=== PATIENT | female | born 1965 | race Caucasian/White ===

== ENCOUNTER 2020-09-17 15:18 | Emergency (ER) | payer MEDICAID, SELFPAY ==
[2020-09-17 15:19] VITALS: BP 164/94; PULSE 82; RESP 16; TEMP 36.6; O2SAT 98; BMI 27.3
[2020-09-17 15:24] VITALS: BP 164/94; PULSE 88; RESP 16; TEMP 36.6; O2SAT 98
--- NOTE | 2020-09-17 16:24 | EX.ED.DYSGE1 ---
HPI History of Present Illness Chief Complaint: General Illness Narrative Narrative: Patient presents with cough congestion subjective fevers and myalgias she was exposed to Covid by her . She has no shortness of breath or cough. She has no loss of taste or smell. [facility] Medical History (Updated 09/17/20 @ 16:[address] Robert Crocker MD) HTN (hypertension) Kidney disease Allergy/AdvReac Type Severity Reaction Status Date / Time No Known Allergies Allergy Verified 09/17/20 15:25 Social History Smoking Status: Former smoker ROS ROS ED ROS Narrative Past medical history: Reviewed Medications: Reviewed Social history: Noncontributory Review of systems: All systems negative except as indicated General: Subjective fevers, generalized weakness. Eyes: No visual changes ENT: Some upper airway congestion, normal voice Neck: No neck pain Cardiovascular: No chest pain Respiratory: No shortness of breath or cough Gastrointestinal: No abdominal pain, nausea vomiting or diarrhea Genitourinary: No dysuria Musculoskeletal: Myalgias. Skin: No rash Neurological: No memory loss, confusion or any focal weakness Psych: No recent behavioral changes Hematologic: No easy bleeding or easy bruising EXAM Physical Exam Narrative Exam Narrative: Physical exam General: Well nourished, Well developed, No Acute Distress she does not appear uncomfortable she has normal vitals. Head: Normocephalic, Atraumatic Eyes: Conjunctiva not pale ENT: Moist mucous membranes, some upper airway congestion Neck: Supple, Nontender, No lymphadenopathy Cardiovascular: Regular rate, Regular rhythm Respiratory: No distress, CTA bilaterally Abdomen: Soft, Nontender, Nondistended Back: Nontender, Normal Inspection. Negative for: CVA tenderness Extremities: Nontender, No edema Skin: Normal color, No rash Neurological: Alert, Normal Strength, Normal Sensation Psychological: Normal affect Const Vital Signs: 09/17/20 15:19 09/17/20 15:24 09/17/20 16:13 Temperature 97.9 F 97.9 F Temperature Source Temporal Temporal Pulse Rate 82 88 Respiratory Rate 16 16 Respiratory Effort Normal Non-Labored Blood Pressure 164/94 H 164/94 H Blood Pressure Mean 117 117 Pulse Ox 98 98 Oxygen Delivery Method Room Air Room Air MDM MDM MDM Narrative Medical decision making narrative: Patient appears well, she has normal saturation she has normal vitals and she appears well. I will test her for Covid otherwise I will discharge her in stable condition. She is told to quarantine. Discharge Plan Triage Chief Complaint: General Illness ED Provider: Robert Crocker Dx/Rx/DC Orders Clinical Impression: Acute upper respiratory infection Instructions: ED URI, Viral, No Abx (Adult) Primary Care Provider: Benson Wing Referrals: Benson Wing MD [Primary Care Provider] - 3-5 Days Disposition Disposition: Home, Self Care
== END 2020-09-17 16:38 | disposition home or self-care (01) ==
PROVIDERS: Emergency Provider Emergency Medicine; PCP Family Medicine
DX: U07.1 COVID-19 (principal); I10 Essential (primary) hypertension; Z87.891 Personal history of nicotine dependence
CPT/HCPCS: 87426; 99282

== ENCOUNTER 2021-10-05 11:51 | Emergency (ER) | payer MEDICAID, SELFPAY ==
[2021-10-05 11:52] VITALS: BP 184/96; PULSE 81; RESP 14; TEMP 36.6; O2SAT 100; BMI 26.9
--- NOTE | 2021-10-05 12:02 | EDS_ITS ---
HPI History of Present Illness Chief Complaint: Upper Extremity Injury Detail of Chief Complaint: Right shoulder pain Informant: patient Onset/Context/Timing Onset: Today Context: Sudden Onset Quality of Pain: Aching and Throbbing Current Severity: Moderate Maximum Severity: Severe Worsened by: Movement Narrative Narrative: Patient presents secondary to right shoulder pain. She was at football pictures with her grandson today. She states she threw his bag into the back of her SUV. When she reached up to hit the button to close the tailgate she felt something pop in her right shoulder and has had extreme pain since that time. She is right-hand dominant. She denies any previous problems with her shoulder. [facility] Medical History HTN (hypertension) Kidney disease Home Medications hydrocodone-acetaminophen 5-325mg 5mg-325mg 1 tab PO Q6H PRN pain 3 days #10 tabs 10/05/21 [Rx Last Taken Unknown] Allergy/AdvReac Type Severity Reaction Status Date / Time No Known Allergies Allergy Verified 10/05/21 11:52 Social History Smoking Status: Former smoker ROS ROS ED Constitutional Constitutional ED: Denies chills or fever(s) Eyes Eyes: Denies change in vision or discharge from eye(s) ENT ENT ED: Denies discharge from eye(s), rhinorrhea or sore throat Cardiovascular Cardiovascular: Denies chest pain or palpitations Respiratory/Chest Respiratory/Chest: Denies cough or dyspnea Gastrointestinal Gastrointestinal: Denies abdominal pain, diarrhea, nausea or vomiting Genitourinary Genitourinary ED: Denies dysuria Musculoskeletal Musculoskeletal: Reports extremity pain Integumentary Denies Abrasions or rash Neurologic Neurologic: Reports weakness; Denies headache(s) or paresthesias Psychiatric Psychiatric: Denies anxiety or depression Allergic/Immunologic Allergic/Immunologic ED: Denies lip swelling or urticaria EXAM Physical Exam Const Vital Signs: 10/05/21 11:52 Temperature 97.8 F Temperature Source Temporal Pulse Rate 81 Respiratory Rate 14 Blood Pressure 184/96 H Blood Pressure Mean 125 Pulse Ox 100 Oxygen Delivery Method Room Air Positive well nourished and well developed General Appearance ED: well developed HEENT Reports normocephalic and head/scalp atraumatic Eyes PERRL and EOMs intact bilaterally Neck supple Chest Wall inspection of chest normal and palpation of chest normal Resp normal respiratory effort and clear to auscultation bilaterally Cardio regular rate and regular rhythm GI normal to inspection, nondistended, normoactive bowel sounds Palpation: soft Extremity Extremity Narrative: Tenderness palpation around the right humeral head and right scapula. No obvious deformity. Strong distal pulses and strong hand grasp with the right hand. Neuro oriented x3 and no sensory deficits noted Sensorium / Orientation: alert Psych mental status grossly normal Skin no rashes or lesions noted MDM MDM MDM Narrative Medical decision making narrative: Patient was given IM morphine and Zofran for pain control. Right shoulder x-ray obtained along with portable chest x-ray. Radiography Diagnostic Testing: Radiology Impression Chest X-Ray 10/05/21 12:10 IMPRESSION: Degenerative changes, as described above. No demonstrated acute cardiopulmonary process. Electronically Signed: Anoop Adams MD at 12:51 EDT , Shoulder X-Ray 10/05/21 12:10 IMPRESSION: Normal x-ray examination of the shoulder. Electronically Signed: Anoop Adams MD at 12:51 EDT , Treatment and Re-Evaluation Narrative: Repeat evaluation patient sitting upright in bed with her arm propped on her lap. Chest x-ray per my interpretation shows no acute abnormalities. Right shoulder x-ray per my interpretation shows no obvious fracture or dislocation. Radiology interpretation of both images is reviewed. Test results discussed with patient. With patient's degree of pain and decreased range of motion I am concerned that she may have torn her rotator cuff. She will be given a sling and analgesics for home. She was referred to Dr. Alfaro, on-call for orthopedics. Discharge Plan Triage Chief Complaint: Upper Extremity Injury ED Provider: Sharon Alcaraz Dx/Rx/DC Orders Clinical Impression: Sprain of right shoulder Instructions: ED Shoulder Sprain Prescriptions: New hydrocodone-acetaminophen 5-325 mg tablet 1 tab PO Q6H PRN (Reason: pain) 3 Days Qty: 10 0RF Primary Care Provider: Benson Wing Referrals: Benson Wing MD [Primary Care Provider] - Carlos Alfaro MD [Med Staff - Active Staff] - 5-7 Days Disposition Disposition: Home, Self Care
[2021-10-05] MEDS: Ondansetron 4 MG/2 ML Vial IM (12:05)
[2021-10-05] MEDS: morphine 10 MG/ML Syringe IM (12:05)
--- NOTE | 2021-10-05 12:10 | RAD_ITS ---
STUDY: X-RAY CHEST REASON FOR EXAM: Female, 56 years old. pain TECHNIQUE: Single AP portable view of the chest. COMPARISON: None. FINDINGS: The lungs are clear and expanded. There is no demonstrated pleural abnormality. Normal size heart. Normal mediastinum and fermin. Normal visualized pulmonary arteries. There is atherosclerotic tortuosity of the aortic arch and descending thoracic aorta. There are diffuse degenerative changes of the visualized thoracic spine. Normal visualized ribs, clavicles, and shoulders. There is no demonstrated abnormality of the visualized soft tissue structures of the upper abdomen. RAD/Chest 1 View (Portable) IMPRESSION: Degenerative changes, as described above. No demonstrated acute cardiopulmonary process. Electronically Signed: Anoop Adams MD at 12:51 EDT ,
--- NOTE | 2021-10-05 12:10 | RAD_ITS ---
STUDY: X-RAY - RIGHT SHOULDER REASON FOR EXAM: Female, 56 years old. Mild soft tissue swelling is present on the medial side of the distal one third tibial shaft. No subcutaneous gas is present. TECHNIQUE: 2 view(s) of the shoulder. COMPARISON: None. FINDINGS: Normal glenohumeral articulation. Normal acromioclavicular joint. Normal acromion. Normal humeral head and visualized proximal humerus. The soft tissue structures are unremarkable. There is no demonstrated fracture. Normal visualized pulmonary apex. RAD/Shoulder min 2 Views IMPRESSION: Normal x-ray examination of the shoulder. Electronically Signed: Anoop Adams MD at 12:51 EDT ,
== END 2021-10-05 13:33 | disposition home or self-care (01) ==
PROVIDERS: Emergency Provider Emergency Medicine; PCP Family Medicine; Visit Provider Emergency Medicine
DX: S43.401A Unspecified sprain of right shoulder joint, initial encounter (principal); X58.XXXA Exposure to other specified factors, initial encounter; I10 Essential (primary) hypertension; Z87.891 Personal history of nicotine dependence
CPT/HCPCS: 71045; 73030; 96372; 99283; J2405

== ENCOUNTER → 2021-10-28 | Outpatient (CLI) | payer MEDICAID, SELFPAY ==
--- NOTE | 2021-10-28 11:10 | MRI_ITS ---
STUDY: MRI RIGHT SHOULDER REASON FOR EXAM: Right shoulder pain after a pop 3-4 weeks ago, limited range of motion. TECHNIQUE: Standardized fat and water weighted pulse sequences were obtained in all 3 orthogonal planes. COMPARISON: Radiographs 10/05/2021. FINDINGS: There is supraspinatus/infraspinatus tendinosis (T2 coronal images 10-14) without discrete tendon tear. Normal subscapularis tendon. Normal teres minor tendon. Normal supraspinatus muscle. Normal infraspinatus muscle. Normal subscapularis muscle. Normal teres minor muscle. Normal glenohumeral articulation. Normal humeral head and visualized proximal humerus. There is a possible SLAP lesion (proton-density coronal images 12, 13). Normal intracapsular long biceps tendon. Normal capsulo- ligamentous complex. Normal acromioclavicular articulation. There is an os acromiale (T2 axial images 3, 4). There is a Type II morphology (curved), with a neutral orientation. There is a trace of subacromial-subdeltoid bursal fluid. Normal visualized coracohumeral and coracoacromial ligaments. Normal deltoid muscle. Normal trapezius muscle. MRI/Upper Ext Joint Only(Routine) IMPRESSION: Supraspinatus/infraspinatus tendinosis without demonstrated rotator cuff tear. Possible SLAP lesion. Os acromiale. Electronically Signed: Tavo Brumfield MD at 12:39 EDT ,
== END | disposition home or self-care (01) ==
LOC: MRI 11:10
PROVIDERS: PCP Family Medicine; Visit Provider Orthopaedic Surgery Sports Medicine
DX: S43.401A Unspecified sprain of right shoulder joint, initial encounter (principal); S46.011A Strain of muscle(s) and tendon(s) of the rotator cuff of right shoulder, initial encounter
CPT/HCPCS: 73221

== ENCOUNTER 2021-12-17 11:39 | Emergency (ER) | payer MEDICAID, SELFPAY ==
[2021-12-17 11:41] VITALS: BP 180/89; PULSE 96; RESP 16; TEMP 36.2; O2SAT 100; BMI 28.3
--- NOTE | 2021-12-17 12:06 | EDS_ITS ---
HPI History of Present Illness Chief Complaint: Lower Extremity Injury Detail of Chief Complaint: Right foot injury Informant: patient Onset/Context/Timing Onset: Today Current Severity: Moderate Maximum Severity: Moderate Narrative Narrative: Patient presents secondary to right foot injury. She states when she got this morning she tripped over some towels or next to her bed. She bent her right great toe back and has had pain and swelling to that area since. She denies any other injury. [facility] Medical History Arthritis of left acromioclavicular joint Arthritis of right acromioclavicular joint HTN (hypertension) Internal impingement of left shoulder Internal impingement of right shoulder Kidney disease SLAP lesion of left shoulder SLAP lesion of right shoulder Strain of muscle(s) and tendon(s) of the rotator cuff of left shoulder, subsequent encounter Strain of muscle(s) and tendon(s) of the rotator cuff of right shoulder, initial encounter Strain of muscle(s) and tendon(s) of the rotator cuff of right shoulder, subsequent encounter Home Medications meloxicam 7.5 mg tablet 7.5 mg PO BID PRN right shoulder pain 2 weeks #30 tabs 11/18/21 [Rx Last Taken Unknown] tramadol 50 mg tablet 50 mg PO Q6H PRN Pain 12/17/21 [History Last Taken Unknown] Allergy/AdvReac Type Severity Reaction Status Date / Time No Known Allergies Allergy Verified 12/17/21 11:42 Surgical History H/O: hysterectomy Social History household members: spouse and children Smoking Status: Former smoker ROS ROS ED Constitutional Constitutional ED: Denies chills or fever(s) Eyes Eyes: Denies change in vision or discharge from eye(s) ENT ENT ED: Denies discharge from eye(s), rhinorrhea or sore throat Cardiovascular Cardiovascular: Denies chest pain or palpitations Respiratory/Chest Respiratory/Chest: Denies cough or dyspnea Gastrointestinal Gastrointestinal: Denies abdominal pain, diarrhea, nausea or vomiting Musculoskeletal Musculoskeletal: Reports extremity pain; Denies back pain Integumentary Denies Abrasions or rash Neurologic Neurologic: Denies headache(s) or weakness Psychiatric Psychiatric: Denies anxiety or depression Allergic/Immunologic Allergic/Immunologic ED: Denies lip swelling or urticaria EXAM Physical Exam Const Vital Signs: 12/17/21 11:41 Temperature 97.2 F L Temperature Source Temporal Pulse Rate 96 Respiratory Rate 16 Blood Pressure 180/89 H Blood Pressure Mean 119 Pulse Ox 100 Oxygen Delivery Method Room Air Positive well nourished and well developed General Appearance ED: well developed HEENT Reports normocephalic and head/scalp atraumatic Eyes PERRL and EOMs intact bilaterally Neck supple Chest Wall inspection of chest normal and palpation of chest normal Resp normal respiratory effort and clear to auscultation bilaterally Cardio regular rate and regular rhythm GI normal to inspection, nondistended, normoactive bowel sounds Palpation: soft Extremity Extremity Narrative: Tenderness of patient mild edema/erythema to the right first MTP joint. Good cap refill distally. No lacerations or abrasions. Neuro oriented x3 and no sensory deficits noted Sensorium / Orientation: alert Motor Exam: strength 5/5 throughout Psych mental status grossly normal Skin no rashes or lesions noted MDM MDM MDM Narrative Medical decision making narrative: Right foot x-ray obtained. Radiography Diagnostic Testing: Clinical Impression(s) from Imaging Studies Foot X-Ray 12/17/21 12:20 IMPRESSION: Hallux valgus deformity. Electronically Signed: Shaji Bautista MD at 12:33 EDT Reading Location ID and State: [facility] / [place] , Service support , Treatment and Re-Evaluation Narrative: Right foot x-ray per my interpretation reveals no acute fracture. Radiology interpretation is reviewed and agrees. Alli wrap is applied to the right foot. Return instructions provided. Discharge Plan Triage Chief Complaint: Lower Extremity Injury ED Provider: Sharon Alcaraz Dx/Rx/DC Orders Clinical Impression: Right foot sprain Instructions: ED Foot Sprain Prescriptions: No Action meloxicam 7.5 mg tablet 7.5 mg PO BID MDD 2 PRN (Reason: right shoulder pain) 14 Days Qty: 30 2RF tramadol 50 mg Tablet 50 mg PO Q6H PRN (Reason: Pain) Primary Care Provider: Benson Wing Referrals: Benson Wing MD [Primary Care Provider] - 10-14 Days if not better Disposition Disposition: Home, Self Care
--- NOTE | 2021-12-17 12:20 | RAD_ITS ---
STUDY: X-RAY - RIGHT FOOT CLINICAL: Female, 56 years old. Pain following injury. TECHNIQUE: 3 view(s) of the foot. COMPARISON: None. FINDINGS: Normal talus, calcaneus, and tarsal bones. Normal visualized subtalar, talonavicular, calcaneocuboid, tarsal and tarsometatarsal articulations. Normal metatarsi. There is degenerative arthrosis of the metatarsophalangeal joint of the hallux with a hallux valgus deformity. Normal tibial and fibular sesamoid bones. Normal interphalangeal joint of the great toe. Normal phalanges of the great toe. Normal second through fifth metatarsophalangeal joints. Normal interphalangeal joints and phalanges of the lesser toes. The soft tissue structures are unremarkable. RAD/Foot min 3 Views IMPRESSION: Hallux valgus deformity. Electronically Signed: Shaji Bautista MD at 12:33 EDT ,
== END 2021-12-17 13:17 | disposition home or self-care (01) ==
PROVIDERS: Emergency Provider Emergency Medicine; PCP Family Medicine; Visit Provider Emergency Medicine
DX: S93.601A Unspecified sprain of right foot, initial encounter (principal); W22.8XXA Striking against or struck by other objects, initial encounter; I10 Essential (primary) hypertension; Z79.1 Long term (current) use of non-steroidal anti-inflammatories (NSAID); Z87.891 Personal history of nicotine dependence
CPT/HCPCS: 73630; 99282

== ENCOUNTER → 2022-02-25 | Outpatient (CLI) | payer MEDICAID, SELFPAY ==
--- NOTE | 2022-02-25 16:59 | MRI_ITS ---
EXAM: MR RIGHT LOWER EXTREMITY WITHOUT INTRAVENOUS CONTRAST, KNEE CLINICAL INDICATION: OSTEOARTHRITIS, SWELLING/PAIN RIGHT KNEE TECHNIQUE: Multiplanar and multisequence MR images of the right knee without intravenous contrast. This report was created using [employer] report Bluet[employer] technology. COMPARISON: None. FINDINGS: BONES/JOINTS: Unremarkable. No fracture. No abnormal bone marrow signal. No synovial hypertrophy. No intra-articular body. EXTENSOR MECHANISM: Unremarkable. MEDIAL MENISCUS: Unremarkable. LATERAL MENISCUS: Unremarkable. MEDIAL CAPSULE/SUPPORTING STRUCTURES: Unremarkable. Intact. LATERAL CAPSULE/SUPPORTING STRUCTURES: Unremarkable. Lateral collateral ligamentous complex, inclusive of the popliteal tendon, are intact. ANTERIOR CRUCIATE LIGAMENT: Unremarkable. Intact. POSTERIOR CRUCIATE LIGAMENT: Unremarkable. Intact. MUSCLES: Unremarkable. CARTILAGE: Unremarkable. Intact. FLUID: No significant joint effusion. Tiny Gonzales''s cyst identified. MRI/Lower Ext Joint Only (Routine) IMPRESSION: Tiny Gonzales''s cyst. No significant arthritic changes. No other significant internal derangement. Electronically Signed: Almas Doyle MD at 21:56 EST ,
== END | disposition home or self-care (01) ==
LOC: MRI 16:56
PROVIDERS: PCP Family Medicine; Visit Provider Orthopaedic Surgery
DX: M17.11 Unilateral primary osteoarthritis, right knee (principal)
CPT/HCPCS: 73721